=== PATIENT | female | born 1965 | race Hispanic/Latino ===

== ENCOUNTER 2018-09-20 05:39 | Emergency (ER) | payer OTHER ==
[2018-09-20 06:13] VITALS: BMI 21.9
[2018-09-20 06:19] VITALS: RESP 16
--- NOTE | 2018-09-20 07:11 | ED PDOC ---
Arrival/HPI <Angélica Lara - Last Filed: 09/20/18 08:52> - General Historian: Patient - History of Present Illness Narrative History of Present Illness (Text): 09/20/18 07:31 53 y/o F with PMHx of migraine, bulging disk (C3-C4) presents to ED with complaints of a 8-9/10 severity headache that starts in the posterior portion of her head and radiation around her head in a band-like distribution. Pt reports this is not the worst headache of her life, and this episode feels similar to migraine headaches that she has had previously. She denies any trauma to the head. She denies numbness,tingling or weakness. She denies exposure to carbon monoxide. Pt is post-menopausal. She denies fevers, chills, neck stiffness, dizziness, weakness, chest pain, palpitations, shortness of breath, n/v/c/d/dysuria. PMD: Dr. Langford([place]) Time/Duration: Prior to Arrival Symptom Course: Unchanged Quality: Pressure Severity Level: 8 Context: Sitting <Marely Stanely - Last Filed: 09/20/18 10:01> - General Chief Complaint: Headache Time Seen by Provider: 09/20/18 07:09 Past Medical History - Provider Review Nursing Documentation Reviewed: Yes - Infectious Disease Hx of Infectious Diseases: None - Reproductive Menopause: Yes - Psychiatric Hx Substance Use: No - Surgical History Hx Appendectomy: Yes - Anesthesia Hx Anesthesia: Yes Hx Anesthesia Reactions: No Hx Malignant Hyperthermia: No <Marely Stanley - Last Filed: 09/20/18 10:01> Family/Social History - Physician Review Nursing Documentation Reviewed: Yes Family/Social History: Unknown Family HX Smoking Status: Never Smoked Hx Alcohol Use: Yes Frequency of alcohol use: Socially Hx Substance Use: No <Marely Stanley - Last Filed: 09/20/18 10:01> Allergies/Home Meds <Angélica Lara - Last Filed: 09/20/18 08:52> <Marely Stanley - Last Filed: 09/20/18 10:01> Allergies/Adverse Reactions: Allergies novicaine Adverse Reaction (Uncoded 09/20/18 06:18) ANAPHYLAXIS Review of Systems - Review of Systems Constitutional: Normal Eyes: Photophobia. absent: Vision Changes, Eye Pain ENT: Normal. absent: Rhinorrhea, Sinus Congestion Respiratory: Normal Cardiovascular: Normal. absent: Chest Pain, Palpitations Gastrointestinal: Normal Genitourinary Female: Normal Musculoskeletal: Normal Skin: Normal Neurological: Normal, Headache. absent: Dizziness, Focal Weakness, Facial Droop, Disequilibrium Endocrine: Normal Hemo/Lymphatic: Normal Psychiatric: Normal <Venkatesh Stanleybibiana - Last Filed: 09/20/18 10:01> Physical Exam Vital Signs Temp Pulse Resp BP Pulse Ox 09/20/18 06:18 97.7 F 66 16 142/69 98 09/20/18 06:13 69 18 142/69 97 <Angélica Lara - Last Filed: 09/20/18 08:52> Vital Signs Reviewed: Yes Vital Signs Temp Pulse Resp BP Pulse Ox 09/20/18 06:18 97.7 F 66 16 142/69 98 09/20/18 06:13 69 18 142/69 97 Temperature: Afebrile Blood Pressure: Normal Pulse: Regular Respiratory Rate: Normal Appearance: Positive for: Well-Appearing, Non-Toxic, Comfortable Pain Distress: None Mental Status: Positive for: Alert and Oriented X 3 - Systems Exam Head: Present: Atraumatic, Normocephalic Pupils: Present: PERRL. No: Non-Reactive, Pinpoint Extroacular Muscles: Present: EOMI. No: Gaze Palsy Conjunctiva: Present: Normal. No: Injected Mouth: Present: Moist Mucous Membranes Neck: Present: Normal Range of Motion. No: Meningeal Signs, MIDLINE TENDERNESS, Paraspinal Tenderness Respiratory/Chest: Present: Clear to Auscultation, Good Air Exchange. No: Respiratory Distress, Accessory Muscle Use Cardiovascular: Present: Regular Rate and Rhythm, Normal S1, S2. No: Murmurs Abdomen: No: Tenderness, Distention, Peritoneal Signs Back: Present: Normal Inspection Upper Extremity: Present: Normal Inspection. No: Cyanosis, Edema Lower Extremity: Present: Normal Inspection. No: Edema Neurological: Present: GCS=15, CN II-XII Intact, Speech Normal, Motor Func Grossly Intact, Normal Sensory Function, Normal Cerebellar Funct, Memory Normal Skin: Present: Warm, Dry, Normal Color. No: Rashes Psychiatric: Present: Alert, Oriented x 3, Normal Insight, Normal Concentration <JadenMarely - Last Filed: 09/20/18 10:01> Medical Decision Making ED Course and Treatment: 09/20/18 08:52 Impression: 53 year old female presents to emergency department complaining of 8-9/10 severity headache that starts in the posterior portion of her head and radiation around her head. Patient Seen with Resident: In agreement with resident note which contains more details about the patient. Patient seen and evaluated with resident. Came up with plan and treatment together. - Medication Orders Current Medication Orders: Discontinued Medications Diphenhydramine HCl (Benadryl) 25 mg IVP STAT STA Stop: 09/20/18 07:31 Last Admin: 09/20/18 07:57 Dose: 25 mg IVP Administration Document 09/20/18 07:57 SRE (Rec: 09/20/18 07:58 SRE [id number]) Charges for Administration # of IVP Administrations 1 Sodium Chloride (Sodium Chloride 0.9%) 1,000 mls @ 999 mls/hr IV .Q1H1M STA Stop: 09/20/18 08:29 Last Admin: 09/20/18 07:57 Dose: 999 mls/hr eMAR Start Stop Document 09/20/18 07:57 SRE (Rec: 09/20/18 07:57 SRE [id number]) Intravenous Solution Start Date 09/20/18 Start Time 07:57 End Date 09/20/18 End time 09:00 Total Infusion Time 63 Ketorolac Tromethamine (Toradol) 30 mg IVP STAT STA Stop: 09/20/18 07:30 Last Admin: 09/20/18 07:57 Dose: 30 mg MAR Pain Assessment Document 09/20/18 07:57 SRE (Rec: 09/20/18 07:57 SRE [id number]) Pain Reassessment Is this a pain reassessment? Yes Sleep Is patient sleeping during reassessment? No Presence of Pain Presence of Pain Yes Pain Scale Used Protocol: PSCALES Pain Scale Used Numeric Location Pain Location Body Circle Edger Description Description Intermittent IVP Administration Document 09/20/18 07:57 SRE (Rec: 09/20/18 07:57 SRE [id number]) Charges for Administration # of IVP Administrations 1 Metoclopramide HCl (Reglan) 10 mg IVP STAT STA Stop: 09/20/18 07:34 Last Admin: 09/20/18 07:58 Dose: 10 mg IVP Administration Document 09/20/18 07:58 SRE (Rec: 09/20/18 07:58 SRE [id number]) Charges for Administration # of IVP Administrations 1 <Angélica Lara - Last Filed: 09/20/18 08:52> ED Course and Treatment: 09/20/18 07:41 Impression: 53 y/o F with PMHx of migraine presents to ED with complaints of headache with band-like distribution. No worst headache of her life Differential diagnosis includes but is not limited to: Migraine Tension headache Plan: 1L NS Toradol Benadryl Reglan Reassess & dispo Progress Notes: 09/20/18 09:42 Pt re-evaluated. Pt reports significant improvement in symptoms. Pt requesting to go home with prescription for imitrex. Pt instructed to follow-up with PMD Reassessment Condition: Re-examined <Marely Stanley - Last Filed: 09/20/18 10:01> - PA / HOT WORKER / Resident Statement CHRISTINA has reviewed & agrees with the documentation as recorded. - Scribe Statement The provider has reviewed the documentation as recorded by the Scribe Tyson Coates All medical record entries made by the Scribe were at my direction and personally dictated by me. I have reviewed the chart and agree that the record accurately reflects my personal performance of the history, physical exam, medical decision making, and the department course for this patient. I have also personally directed, reviewed, and agree with the discharge instructions and disposition. <Angélica Lara - Last Filed: 09/20/18 08:52> - PA / HOT WORKER / Resident Statement CHRISTINA has reviewed & agrees with the documentation as recorded. CHRISTINA has examined the patient and agrees with the treatment plan. <Marely Stanley - Last Filed: 09/20/18 10:01> Disposition/Present on Arrival <Angélica Lara - Last Filed: 09/20/18 08:52> - Present on Arrival Any Indicators Present on Arrival: No History of DVT/PE: No History of Uncontrolled Diabetes: No Urinary Catheter: No History of Decub. Ulcer: No History Surgical Site Infection Following: None - Disposition Have Diagnosis and Disposition been Completed?: Yes Disposition Time: 09:45 <Marely Stanley - Last Filed: 09/20/18 10:01> - Disposition Diagnosis: Migraine Disposition: HOME/ ROUTINE Patient Problems: Current Active Problems Problem Status Onset Migraine Acute Condition: GOOD Discharge Instructions (ExitCare): Migraine Headache (DC) Additional Instructions: Please follow up with your primary care physician, Dr. Langford, within 2 days of discharge from the emergency room If your symptoms return or worsen, please visit the nearest ER Prescriptions: SUMAtriptan [Imitrex] 25 mg PO DAILY PRN #5 tab PRN Reason: Headache Forms: [facility] (Qatari)
[2018-09-20] MEDS ORDERED: Sodium Chloride 0.9% 1,000 ML IV STA (07:29)
[2018-09-20] MEDS ORDERED: DiphenhydrAMINE 50 mg/ml Inj IVP STA (07:30)
[2018-09-20 10:13] VITALS: BP 115/64; PULSE 70; TEMP 97.9; O2SAT 100
== END 2018-09-20 10:13 | disposition home or self-care (01) ==
LOC: ED 05:39
DX: G43.909 Migraine, unspecified, not intractable, without status migrainosus (principal)
CPT/HCPCS: 81025; 96361; 96374; 96375; 99285; J1200; J1885; J2765; J7030